=== PATIENT | female | born 1995 | race Caucasian/White ===

== ENCOUNTER 2021-12-30 19:57 | Inpatient (IN) | payer MEDICAID ==
[~2021-12-30] VITALS: Ht 159 cm; Wt 75.3 kg
[2021-12-30] MEDS ORDERED: SODIUM CHLORIDE 0.9% 1,000 ML IV ONE (21:30)
[2021-12-30 22:18] LABS: BASOPHILS % 0.1 % (0.0-2.0); EOSINOPHILS % 0.3 % (0.0-5.0); HEMATOCRIT. 39.4 % (36.0-48.0); HEMOGLOBIN. 13.6 g/dL (12.0-16.0); LYMPHOCYTES % 10.4 % (20.0-50.0); MEAN CORPUSCULAR HEMOGLOBIN 30.3 pg (28.0-32.0); MEAN CORPUSCULAR VOLUME 87.7 fL (81.0-99.0); MEAN PLATELET VOLUME 7.5 fl (7.4-10.4); MONOCYTES % 4.6 % (2.0-8.0); NEUTROPHILS % 84.6 % (40.0-76.0); PLATELET 291 x1000/uL (130-400); RED BLOOD CELL COUNT 4.49 mill/uL (4.2-5.4); RED CELL DISTRIBUTION WIDTH 12.4 % (11.6-14.6)
[2021-12-30 22:29] LABS: D-DIMER 3.19 mg/L FEU (<0.50); PARTIAL THROMBOPLASTIN TIME 24.2 sec (23.4-31.0); PROTHROMBIN TIME 10.4 sec (9.6-11.0)
[2021-12-30 22:32] LABS: CHLORIDE 106 mEq/L (98-107)
[2021-12-30 22:50] LABS: *AMPHETAMINES SCREEN URINE NEGATIVE (NEGATIVE); *BARBITURATES SCREEN URINE NEGATIVE (NEGATIVE); *BENZODIAZEPINES SCREEN URINE NEGATIVE (NEGATIVE); *COCAINE SCREEN URINE NEGATIVE (NEGATIVE); CANNABINOID URINE SCREEN NEGATIVE (NEGATIVE); METHADONE URINE SCREEN NEGATIVE (NEGATIVE); OPIATES URINE SCREEN NEGATIVE (NEGATIVE); PHENCYCLIDINE URINE SCREEN NEGATIVE (NEGATIVE)
[2021-12-30 22:55] LABS: B-HCG QUANTITATIVE 48663 mIU/mL (<3); ETHANOL BLOOD < 10 mg/dL
[2021-12-30] MEDS ORDERED: MORPHINE SULFATE 4 MG/ML CPJ (NOT FOR IM USE) IV STA (22:58)
[2021-12-30] MEDS ORDERED: ONDANSETRON HCL 4MG/2ML INJ IV STA (22:58)
[2021-12-30] MEDS ORDERED: ASPIRIN 325MG EC TABLET PO ONE (23:00)
[2021-12-30] MEDS ORDERED: ENOXAPARIN 100MG/ML SYR SUBCUT ONE (23:00)
[2021-12-30] MEDS ORDERED: NALOXONE HCL 0.4MG/ML VIAL IV PRN (23:45)
[2021-12-31] VITALS (8 sets, daily range): BP systolic 90–106; BP diastolic 60–68
[2021-12-31] MEDS ORDERED: ONDANSETRON HCL 4MG/2ML INJ IV PRN
[2021-12-31] MEDS ORDERED: IPRATROPIUM/ALBUTEROL 0.5-3(2.5)MG/3ML NEB NEB PRN
[2021-12-31] MEDS ORDERED: MAGNESIUM/ALUMINUM HYDROXIDE/SIMETHICONE 30ML UDC PO PRN
[2021-12-31] MEDS ORDERED: ACETAMINOPHEN 325MG TABLET PO PRN ×2
[2021-12-31] MEDS ORDERED: CLONIDINE 0.1MG TABLET PO PRN
[2021-12-31] MEDS ORDERED: HYDROCODONE/ACETAMINOPHEN 5/325MG TABLET PO PRN
[2021-12-31 05:27] LABS: BASOPHILS % 0.2 % (0.0-2.0); EOSINOPHILS % 0.3 % (0.0-5.0); HEMATOCRIT. 36.8 % (36.0-48.0); HEMOGLOBIN. 12.6 g/dL (12.0-16.0); MEAN CORPUSCULAR VOLUME 87.9 fL (81.0-99.0); MEAN PLATELET VOLUME 7.3 fl (7.4-10.4); MONOCYTES % 6.4 % (2.0-8.0); NEUTROPHILS % 72.1 % (40.0-76.0); PLATELET 292 x1000/uL (130-400); RED BLOOD CELL COUNT 4.18 mill/uL (4.2-5.4); RED CELL DISTRIBUTION WIDTH 12.6 % (11.6-14.6)
[2021-12-31 05:37] LABS: CHLORIDE 111 mEq/L (98-107)
[2021-12-31 05:47] LABS: CREATINE KINASE MB FRACTION 4.6 ng/mL (0.5-3.6)
[2021-12-31 05:54] LABS: HDL CHOLESTEROL 35 mg/dL (40-59); LDL CHOLESTEROL 96 mg/dL (5-100); PHOSPHORUS 3.8 mg/dL (2.5-4.9)
[2021-12-31] MEDS ORDERED: IOHEXOL-350 100 ML BOTTLE ONE (06:00)
[2021-12-31] MEDS ORDERED: ENOXAPARIN 100MG/ML SYR SUBCUT SCH (10:00)
[2021-12-31 16:42] LABS: CREATINE KINASE MB FRACTION 2.9 ng/mL (0.5-3.6)
[2021-12-31] MEDS: ENOXAPARIN 80MG/0.8ML SYR SUBCUT SCH (21:20)
[2022-01-01] VITALS (12 sets, daily range): BP systolic 97–149; BP diastolic 60–96
[2022-01-01 00:16] LABS: CREATINE KINASE MB FRACTION 1.7 ng/mL (0.5-3.6)
[2022-01-01 04:47] LABS: CLARITY URINE CLEAR (CLEAR); COLOR URINE YELLOW (YELLOW); KETONES URINE 2+ (NEGATIVE); LEUKOCYTE ESTERASE URINE NEGATIVE (NEGATIVE); NITRITE URINE NEGATIVE (NEGATIVE); OCCULT BLOOD URINE NEGATIVE (NEGATIVE); PROTEIN URINE NEGATIVE (NEGATIVE); SPECIFIC GRAVITY URINE 1.024 (1.005-1.030)
[2022-01-01 06:17] LABS: BASOPHILS % 0.2 % (0.0-2.0); EOSINOPHILS % 0.8 % (0.0-5.0); HEMATOCRIT. 39.4 % (36.0-48.0); HEMOGLOBIN. 13.4 g/dL (12.0-16.0); LYMPHOCYTES % 27.6 % (20.0-50.0); MEAN CORPUSCULAR HEMOGLOBIN 29.8 pg (28.0-32.0); MEAN CORPUSCULAR VOLUME 87.7 fL (81.0-99.0); MEAN PLATELET VOLUME 7.9 fl (7.4-10.4); NEUTROPHILS % 65.4 % (40.0-76.0); PLATELET 288 x1000/uL (130-400); RED BLOOD CELL COUNT 4.49 mill/uL (4.2-5.4); RED CELL DISTRIBUTION WIDTH 12.5 % (11.6-14.6)
[2022-01-01 06:27] LABS: CHLORIDE 105 mEq/L (98-107)
[2022-01-01 06:33] LABS: PHOSPHORUS 3.8 mg/dL (2.5-4.9)
[2022-01-01] MEDS: ENOXAPARIN 80MG/0.8ML SYR SUBCUT SCH ×2 (08:20→20:47)
[2022-01-01] MEDS ORDERED: POTASSIUM CHLORIDE 20MEQ TABLET SR PO NR (10:00)
[2022-01-02] VITALS (11 sets, daily range): BP systolic 96–117; BP diastolic 62–75
[2022-01-02] MEDS: ENOXAPARIN 80MG/0.8ML SYR SUBCUT SCH ×2 (08:30→20:56)
[2022-01-02] MEDS ORDERED: LOV80 SUBCUT (17:55)
[2022-01-03] VITALS: BP 103/68
[2022-01-03 04:00] VITALS: BP 107/64
[2022-01-03 08:00] VITALS: BP 106/67
[2022-01-03] MEDS: ENOXAPARIN 80MG/0.8ML SYR SUBCUT SCH (09:10)
[2022-01-03 11:48] VITALS: BP 108/66
[2022-01-03 12:00] VITALS: BP 108/60
== END 2022-01-03 14:35 | disposition home or self-care (01) | DRG 566 ==
LOC: ER 19:57 → MICUSO 23:25 → SUPCPDRO 23:31 → 5EST 12-31 09:45
PROVIDERS: ADMIT Internal Medicine; ATTEND Internal Medicine
DX: O99.411 Diseases of the circulatory system complicating pregnancy, first trimester (principal); O88.211 Thromboembolism in pregnancy, first trimester; I21.4 Non-ST elevation (NSTEMI) myocardial infarction; Z20.822 Contact with and (suspected) exposure to COVID-19; D25.9 Leiomyoma of uterus, unspecified; O34.11 Maternal care for benign tumor of corpus uteri, first trimester; K76.0 Fatty (change of) liver, not elsewhere classified; Z3A.08 8 weeks gestation of pregnancy
CPT/HCPCS: 36415; 71045; 71275; 76801; 80048; 80053; 80061; 80305; 80320; 81003; 82550; 82553; 83036; 83735; 83880; 84100; 84443; 84484; 84702; 85025; 85379; 87426; 93005; 93306; 93970; 99291; J1650; J2270; J2405; J7030; Q9967; G0480